=== PATIENT | female | born 1975 | race Caucasian/White ===

== ENCOUNTER 2016-11-07 01:01 | Inpatient (IN) | payer OTHER ==
[~2016-11-07] VITALS: Ht 157.5 cm; Wt 49.9 kg
[2016-11-07] VITALS (7 sets, daily range): BP systolic 115–154; BP diastolic 74–92
[2016-11-07 01:43] LABS: CALCIUM 8.3 mg/dL (8.5-10.1); CARBON DIOXIDE 27.6 mmol/L (21-32); CHLORIDE SERUM 107 mmol/L (98-107); CREATININE SERUM 0.5 mg/dL (0.6-1.0); GFR1 > 60 mL/min; GLUCOSE SERUM 103 mg/dL (74-106); SODIUM SERUM 143 mmol/L (136-145)
[2016-11-07 01:46] LABS: ALKALINE PHOSPHATASE 76 U/L (46-116); ALT/SGPT 50 U/L (14-59); AST/SGOT 25 U/L (15-37); BILIRUBIN TOTAL 0.22 mg/dL (0.20-1.00); CHOLESTEROL 157 mg/dL (<200); LIPASE 285 IU/L (73-393); TRIGLYCERIDES 69 mg/dL (<150)
[2016-11-07 01:47] LABS: ALBUMIN 3.2 g/dL (3.4-5.0); CHOLESTEROL/HDL RATIO 2.2; HDL CHOLESTEROL 71 mg/dL (40-60); PLATELET COUNT 236 x10^3mcL (130-400)
[2016-11-07 01:54] LABS: RED CELL DISTRIBUTION WIDTH 15.8 % (11.5-14.5)
[2016-11-07 01:57] LABS: BASOPHIL % 5.8 % (0-2)
[2016-11-07 02:29] LABS: FREE T4 0.85 ng/dL (0.76-1.46); FREE THYROXINE INDEX 2.5 ug/dL (1.4-4.5); T4(THYROXINE) 7.4 ug/dL (4.7-13.3)
[2016-11-07] MEDS ORDERED: SEROQUEL100 MG PO (02:42)
[2016-11-07] MEDS ORDERED: COZ25 PO (02:42)
[2016-11-07] MEDS ORDERED: SIMVASTATIN40 M1 PO (02:42)
[2016-11-07] MEDS ORDERED: ASPIR 8181 MG PO (02:42)
[2016-11-07] MEDS ORDERED: CYMBALTA60 M1 PO (02:42)
[2016-11-07] MEDS ORDERED: ALBUTEROL0.63 MG/3 NEB (02:43)
[2016-11-07 02:55] LABS: T3 TOTAL 1.25 ng/mL
[2016-11-07 03:49] LABS: MAGNESIUM 2.4 mg/dL (1.8-2.4); PHOSPHOROUS 4.5 mg/dL (2.5-4.9)
[2016-11-07 06:18] LABS: microscopic required? NO
[2016-11-07 06:39] LABS: urine erythrocyte NEGATIVE (NEGATIVE)
[2016-11-07 07:20] LABS: AMPHETAMINE QUAL UR NONE DETECTED (NEG <=1000)
[2016-11-08 04:59] VITALS: BP 128/79
[2016-11-08 08:00] VITALS: BP 131/74
[2016-11-08 12:06] VITALS: BP 131/74
[2016-11-08 12:45] VITALS: BP 122/89
== END 2016-11-08 12:50 | disposition short-term general hospital (02) | DRG 143 ==
LOC: ED 01:01 → DU 02:32
PROVIDERS: Specialist; ADMIT Family Medicine
DX: T17.508A Unspecified foreign body in bronchus causing other injury, initial encounter (principal); N17.0 Acute kidney failure with tubular necrosis; G93.40 Encephalopathy, unspecified; F15.10 Other stimulant abuse, uncomplicated; F14.10 Cocaine abuse, uncomplicated; E44.1 Mild protein-calorie malnutrition; E78.5 Hyperlipidemia, unspecified; Y33.XXXA Other specified events, undetermined intent, initial encounter; Y93.89 Activity, other specified; Y92.018 Other place in single-family (private) house as the place of occurrence of the external cause; Z79.82 Long term (current) use of aspirin; F17.210 Nicotine dependence, cigarettes, uncomplicated; I11.0 Hypertensive heart disease with heart failure; I50.9 Heart failure, unspecified; F31.9 Bipolar disorder, unspecified; Z88.8 Allergy status to other drugs, medicaments and biological substances; E83.51 Hypocalcemia; E02 Subclinical iodine-deficiency hypothyroidism; Z68.20 Body mass index [BMI] 20.0-20.9, adult
CPT/HCPCS: 83880; 84439; G0480; J2270; J7030; J7620